=== PATIENT | female | born 1985 | race American Indian/Alaskan Native ===

== ENCOUNTER 2017-09-14 12:31 | Emergency (ER) | payer SELFPAY ==
[2017-09-14] MEDS ORDERED: TORADOL IM ONE (15:33)
[2017-09-14] MEDS ORDERED: ULTRAM PO ONE (15:33)
--- NOTE | 2017-09-14 16:02 | Emergency Department Report ---
ED Extremity Problem HPI - General Chief complaint: Extremity Injury, Lower Stated complaint: FOOT PAIN Time Seen by Provider: 09/14/17 15:23 Source: patient Mode of arrival: Ambulatory Limitations: No Limitations - History of Present Illness Initial comments: 32-year-old female with no significant past medical history presents complaining of right lateral foot pain after injury 2 days ago. 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 She is having 6/10 pain to the right lateral that is constant, aching, worse with palpation, evaluation, and movement. Patient is able to bear some weight but limping. No other injury reported. Severity scale (0 -10): 8 - Related Data Previous Rx's Medication Instructions Recorded Last Taken Type Ibuprofen [Motrin] 800 mg PO Q8HR PRN #30 tablet 09/14/17 Unknown Rx traMADol [Ultram 50 MG tab] 50 mg PO Q6HR PRN #20 tablet 09/14/17 Unknown Rx Allergies Allergy/AdvReac Type Severity Reaction Status Date / Time No Known Allergies Allergy Unverified 09/14/17 12:42 ED Review of Systems ROS: Stated complaint: FOOT PAIN Other details as noted in HPI Comment: All other systems reviewed and negative ED Past Medical Hx - Past Medical History Previous Medical History?: No - Surgical History Past Surgical History?: No - Social History Smoking Status: Never Smoker Substance Use Type: None - Medications Home Medications: Home Medications Medication Instructions Recorded Confirmed Last Taken Type Ibuprofen [Motrin] 800 mg PO Q8HR PRN #30 tablet 09/14/17 Unknown Rx traMADol [Ultram 50 MG tab] 50 mg PO Q6HR PRN #20 tablet 09/14/17 Unknown Rx ED Physical Exam - General Limitations: No Limitations - Other Other exam information: General: No limitations, patient is alert in no acute distress Head exam: Atraumatic, normocephalic Eyes exam: Normal appearanc. pupils equal reactive to light, extraocular movements intact ENT: Moist mucous membrane, normal oropharynx Neck exam: Normal inspection, full range of motion, no meningismus nontender Respiratory exam: Clear to auscultation bilateral, no wheezes, rales, crackles Cardiovascular: Normal rate and rhythm, normal heart sounds Abdomen: Soft, nondistended, and nontender, with normal bowel sounds, no rebound, or guarding Extremity: Right lateral foot tenderness and swelling. 2+ DP pulses. No ankle tenderness. Full range of motion of ankle and toes Back: Normal Inspection, full range of motion, no tenderness Neurologic: Alert, oriented x3, cranial nerves intact, no motor or sensory deficit Psychiatric: normal affect, normal mood Skin: Warm, dry, intact ED Course Vital Signs 09/14/17 12:38 Temperature 98.4 F Pulse Rate 59 L Respiratory 16 Rate Blood Pressure 127/65 O2 Sat by Pulse 99 Oximetry - Reevaluation(s) Reevaluation #1: 09/14/17 15:59 Toradol and tramadol ED Medical Decision Making - Radiology Data Radiology results: image reviewed (xr right: foot Moise fracture (read by me)) - Medical Decision Making Right foot Moise fracture fracture between zone 2 and 3 Short posterior ankle splint applied for immobilization Crutches with teaching provided Treated with tramadol and Toradol Will be prescribed additional medications for pain and orthopedic follow-up - Differential Diagnosis fracture, contusion, sprain Critical Care Time: No Critical care attestation.: If time is entered above; I have spent that time in minutes in the direct care of this critically ill patient, excluding procedure time. ED Disposition Clinical Impression: Moise fracture Qualifiers: Encounter type: initial encounter Fracture type: closed Laterality: right Qualified Code(s): S99.191A - Other physeal fracture of right metatarsal, initial encounter for closed fracture Disposition: - TO HOME OR SELFCARE Is pt being admited?: No Does the pt Need Aspirin: No Condition: Stable Instructions: Foot Fracture in Adults (ED) Additional Instructions: Take the medication as prescribed. Continue to wear the splint until cleared by the orthopedic surgeon. Follow with orthopedic doctor provided or with the orthopedic doctor of your choice. Prescriptions: Ibuprofen [Motrin] 800 mg PO Q8HR PRN #30 tablet PRN Reason: Pain traMADol [Ultram 50 MG tab] 50 mg PO Q6HR PRN #20 tablet PRN Reason: Pain Referrals: ZEESHAN SUNSHINE MD [Staff Physician] - 3-5 Days (Orthopedic surgeon) Forms: Work/School Release Form(ED) Time of Disposition: 16:41
[2017-09-14 17:01] VITALS: BP 142/62
--- NOTE | 2017-09-17 14:24 | XRay Report ---
FINAL REPORT EXAM: XR FOOT 3+V RT HISTORY: lateral foot pain TECHNIQUE: Right foot three views PRIORS: None. FINDINGS: There is a linear lucency with mild periosteal elevation seen proximal 5th metatarsal most consistent with a stress fracture. Remaining bony structures seen are unremarkable. Joint spaces are within normal limits. IMPRESSION: Findings most consistent with stress fracture proximal 5th metatarsal
== END 2017-09-14 17:03 | disposition home or self-care (01) ==
LOC: ED 12:31
DX: S99.191A Other physeal fracture of right metatarsal, initial encounter for closed fracture (principal); X50.1XXA Overexertion from prolonged static or awkward postures, initial encounter; Y93.B9 Activity, other involving muscle strengthening exercises; Y99.8 Other external cause status; Y92.89 Other specified places as the place of occurrence of the external cause
CPT/HCPCS: 29515; 73630; 96372; 99283; J1885